=== PATIENT | female | born 1990 | race Caucasian/White ===

== ENCOUNTER 2021-11-15 05:57 | Inpatient (IN) | payer OTHER, SELFPAY ==
[2021-11-15] VITALS (43 sets, daily range): BP systolic 108–145; BP diastolic 53–89; PULSE 77–104; RESP 18; TEMP 36.6–37.1; O2SAT 96–100; BMI 42.5
--- NOTE | 2021-11-15 07:00 | LDN_ITS ---
CHIEF COMPLAINT Induction due to BMI greater than 40 pre-. HPI The patient is a 31-year-old G3, P1, at 39 weeks gestation by LMP consistent with 12 week ultrasound, who presents to Labor and Delivery for induction due to BMI. ?The patient reports she has been feeling well. ?No recent coughs, colds, or illness. ?She is not noticing any contractions. ?No loss of fluid. ?No bleeding. ?No headaches or vision changes. ?Baby has been moving well. ?She does not have any questions or concerns today. ? OBSTETRIC HISTORY She is a G3, P1-0-1-1. ?First baby was July 13, 2017, delivered at 38 and 4 weeks gestation, who weighed 7 pounds 10 ounces, was a boy named Patrice. ?Second was June 2019 was a 1st trimester SAB. ?Third is current , she has had good care. ? labs include blood type B positive, antibody negative, HIV, syphilis, hepatitis negative, chlamydia negative. ?Rubella immune. ?Hemoglobin A1c 5.9. ?One glucose tolerance test was positive, but she passed her 3 hour glucose tolerance test. ?GBS is known negative. ?This , she has had good care. ?She did have an anesthesiology and OB consult due to her BMI. ?She has a known macrosomia with ultrasound June 30, 2021, showing EF to be 95%. ?Growth at 34 weeks showed 98 percentile. ? Based on growth ultrasounds and percentage 98% at 34 weeks, basing on estimated weight curve, 95 percentile would be 4125 g at 39 weeks and 4232 g at 40 weeks. ?She did have a consult with OB regarding her BMI and macrosomia. ?She is well below the level for prophylactic in a nondiabetic. ?She has been getting weekly BPP due to BMI. PAST MEDICAL HISTORY 1. Migraines.? 2. Pneumonia in 1997.? 3. Chickenpox. ? PAST SURGICAL HISTORY Tonsils and adenoids. ALLERGIES Augmentin causes hives. ?Sulfa eyedrops cause swelling and redness of the eyes. MEDICATIONS 1. Colace 100 mg daily.? 2. Ferrous sulfate 325 every other day.? 3. vitamin daily.? SOCIAL HISTORY She is . ?She has 1 son named Patrice. FAMILY HISTORY Maternal aunt had cervical cancer. ?Paternal grandmother had breast cancer. ?Paternal grandfather had prostate cancer. ?Mom, sister and brother are healthy. ?Maternal great uncle had muscular dystrophy. ?Mom had negative testing. ?Father has prediabetes. PHYSICAL EXAM VITAL SIGNS: ?On admit, temp 98.6, pulse 98, blood pressure 127/74, O2 saturation 97%. ? GENERAL: ?Pleasant female in no acute distress. ?She is alert and appropriate. ? HEENT: ?Conjunctivae are clear. ?She is wearing a mask. ? HEART: ?Regular rate and rhythm. ? LUNGS: ?Clear to auscultation bilaterally. ABDOMEN: ?Gravid, nontender. ? : ?Cervix is 3 cm, 50%, -2, medium consistency and mid position, which gives her a Gomez score of 6 and a mall tip. ASSESSMENT A 31-year-old G3, P1, at 39 weeks gestation here for induction due to BMI. ? PLAN 1. Previously discussed induction techniques with the patient. ?With known prior delivery and cervix as above, we will start with Pitocin and an AROM if needed. ?Head is currently engaged. ?We will start with Pitocin protocol.? 2. Known GBS negative.? 3. Discussed all with patient and her . ?They did not have any questions.?
[2021-11-15 09:37] LABS: Hemoglobin* 12.9 gm/dL (12.0-16.0)
[2021-11-15] MEDS: LACTATED RINGERS 1000 ML 1,000 ML 125 ML IV ×4 (09:49→21:12)
[2021-11-15] MEDS: OXYTOCIN 30 unit/500 ML in NS 30 UNIT/500 ML BAG IVPB (09:51)
[2021-11-15 10:53] LABS: SARS PCR* Negative SARS-CoV-2 (Negative)
--- NOTE | 2021-11-15 17:16 | PM.OBPNL ---
Pain Control Time Seen by Provider: 17:15 Date Seen: 11/15/21 Comments: starting breath through contraction she says, just in last few Contractions Monitor mode: External (ctxs q2-4min) Contraction pattern: Irregular Contraction intensity: Moderate Pelvic Exam Dilation (cm): 4 Effacement (%): 70 Station: -3 Comments: ballotable Fetus (Single) Comments: FHT basline 140's moderate variability, +accels. Assessment and Plan Assessment: induction ongoing Plan: continue present management Comments: Discussed possible AROM but head still ballotable on exam so unable to AROM at this time. discussed reasons why with pt. continue pitocin increasing per protocol. pt and without ?'s
[2021-11-15] MEDS: CALCIUM CARBONATE 500 MG CHEW PO (21:11)
[2021-11-15] MEDS: LIDOCAINE 2% (PF) 5 ML VIAL EPIDURAL (21:40)
[2021-11-15] MEDS: ROPIVACAINE 0.2% 100 ml 100 ML 12 MG EPIDURAL (21:41)
--- NOTE | 2021-11-15 21:48 | P.ANBPRC_ITS ---
PFSH PFS Social History Smoking Status: Former smoker Meds Home Medications and Allergies Home Medications Medication Instructions Recorded Confirmed Type calcium carbonate 200 mg calcium 800 mg PO QID 11/15/21 11/15/21 History (500 mg) chewable tablet (Tums) docusate sodium 100 mg capsule 100 mg PO DAILY 11/15/21 11/15/21 History (Colace) ferrous sulfate 325 mg (65 mg 325 mg PO .Every other 11/15/21 11/15/21 History iron) tablet (Feosol) prenat.vits,jenn,[id number]-bfsfx 1 tab PO DAILY 11/15/21 11/15/21 History Allergies Allergy/AdvReac Type Severity Reaction Status Date / Time Sulfa (Sulfonamide Allergy Intermediate Eye swell Verified 11/15/21 09:55 Antibiotics) amoxicillin [From Augmentin] Allergy Mild Rash Verified 11/15/21 09:55 clavulanic acid Allergy Mild Rash Verified 11/15/21 09:55 [From Augmentin] Results Labs Labs: Laboratory Results - last 24 hr 11/15/21 11/15/21 11/15/21 07:30 09:22 09:22 Hgb 12.9 SARS-CoV-2 (PCR) Negative SARS-CoV-2 Blood Type B Positive Antibody Screen NEGATIVE Vital Signs Vital Signs: Last Vital Signs Temp 98.4 F 11/15/21 19:20 Pulse 101 H 11/15/21 21:47 Resp 18 11/15/21 14:51 BP 124/60 11/15/21 21:47 Pulse Ox 99 11/15/21 21:46 Weight: 123.094 kg Height: 170.18 cm Anesthesia Procedures Epidural Insertion Patient Location: OB Start Time: 21:00 Stop Time: 22:00 Start Date: 11/15/21 Stop Date: 11/15/21 Reason for Block: primary anesthetic Patient Position: sitting Performed By: Ko Mathur Preanesthetic Checklist: IV checked, risks and benefits discussed, surgical consent, monitors and equipment checked, pre-op evaluation, timeout performed and anesthesia consent Prep: chlorhexidine gluconate Monitoring: blood pressure monitoring, monitoring tech, continuous pulse oximetry and heart rate Approach: midline Vertebral Space: lumbar (1-5) Epidural Technique: DILLON saline Needle Type: Tuohy needle Injection Technique: continuous shot Needle gauge: 17 Needle Length (cm): 10 cm Needle Insertion Depth (cm): 7 Catheter Gauge: 19 Catheter Type: multi-orifice Catheter at skin depth (cm): 12 Test Dose Result: negative and lidocaine 1.5% with epinephrine 1 to 200,000 Events: other
--- NOTE | 2021-11-15 23:12 | P.OBPN_ITS ---
Pain Control Time Seen by Provider: 23:08 Date Seen: 11/15/21 Pain control: epidural Comments: pt received epidural and is now comfortable. Initially after epidural was on let side, then switched to right and started having recurrent late decels so switched back to left which seemed to show improvement. Then at 2300 she SROM'd with clear fluid and had decel at that time down to 90bpm. Recovered on own. Contractions Monitor mode: External (ctxs q2-4min) Contraction frequency: 2 (q2min) Contraction pattern: Regular Pelvic Exam Dilation (cm): 6 Effacement (%): 90 Station: -3 Comments: Head still not totally engaged with room noted, she then had contraction which brought head down during contraction Fetus (Single) Comments: baseline now 140's moderate variability, +accels, since SROM had 4 obvious decels but contractions not picking up well to confirm if late or early--possible mixture. Good variability between. Assessment and Plan Pitocin rate (mU/min): 14 Assessment: active labor Comments: at 39wks induced for BMI, now with SROM with clear fluid and transitioning into active labor. 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 Nursing placing urinary catheter first and adjusting monitor as prev ctxs with novi were picking up well.
[2021-11-16] VITALS (28 sets, daily range): BP systolic 105–137; BP diastolic 50–77; PULSE 82–117; RESP 16; TEMP 36.6–37.2; O2SAT 92–100
--- NOTE | 2021-11-16 00:08 | PM.OBPNL ---
Pain Control Time Seen by Provider: 23:50 Date Seen: 11/16/21 Pain control: epidural Comments: pt comfortable, just did side line release with RN's Contractions Monitor mode: External (ctxs q2-4min) Contraction frequency: 2 (q1-4min) Contraction pattern: Irregular Pelvic Exam Dilation (cm): 7-8 Effacement (%): 90 Station: -2 Comments: pt checked on left side, unable to tell head position, IUPC placed without difficulty Fetus (Single) Comments: 150's moderate variability, recurrent late decels Assessment and Plan Pitocin rate (mU/min): 14 Assessment: active labor Comments: recurrent late decels. Will give IVF bolus, decrease pitocin to 10, place IUPC. Discussed with pt and and they were in agreement with plan and did not have ?'s.
[2021-11-16] MEDS: LACTATED RINGERS 1000 ML 1,000 ML IV (00:35)
[2021-11-16] MEDS: ONDANSETRON 2 MG/ML inj 4 MG IV (01:10)
--- NOTE | 2021-11-16 02:10 | PM.OBPRCVD ---
Procedure Delivery date: 11/16/21 Procedure Done: Global Events: Labor Induction (due to BMI) Intrapartal Events: Distress (recurrent lates intermittently improved with various interventions each time) Induction method: per pitocin protocol Delivery monitor: external FHT and internal FHT (placed towards end of labor due to difficulty picking up heart tones) Route of delivery: Episiotomy description: None Laceration description: Perineal - 1st Degree (hemostatic not requiring repair) Estimated blood loss (mL): 200 Anesthesia type: Epidural Disposition: floor (routine ) Complications: Brief shoulder dystocia <15-20sec, navin performed and at that time infants hand was noted at neck and therefore posterior arm was delivery and infant delivered. Placed on patients abdomen and stimulated and had spontaneous cry. No further resuscitation needed. Apgars 8/9. weight pending. [place] Infant Gender: Male presentation: vertex Placental Delivery Description: Spontaneous Cord Description: 3 Vessels
[2021-11-16] MEDS: IBUPROFEN 600 MG TABLET PO ×2 (07:23→19:27)
[2021-11-16] MEDS: DOCUSATE SODIUM 100 MG CAPSULE PO (10:12)
[2021-11-17 02:30] VITALS: BP 108/73; PULSE 76; RESP 14; TEMP 36.6; O2SAT 97
[2021-11-17] MEDS: IBUPROFEN 600 MG TABLET PO (03:21)
[2021-11-17 07:20] LABS: Hemoglobin* 12.2 gm/dL (12.0-16.0)
--- NOTE | 2021-11-17 07:20 | PM.OBDSVD1 ---
DS: Providers Provider Time Seen by Provider: 07:20 Date Seen: 11/17/21 Date of admission: 11/15/21 05:57 Primary care physician: Jazz Wilson PA-C Admitting Clinician: Rhonda James DO Attending Physician on discharge: Rhonda James DO Date of Discharge: 11/17/21 DS: Diagnosis Discharge Diagnosis (1) (normal spontaneous vaginal delivery): Status: Acute (2) complicated by obesity: Status: Acute Exam Const: Vital Signs, click to edit/add: Vital Signs - 24 hr 11/16/21 08:05 11/16/21 14:10 11/16/21 16:19 Temperature 98.7 F 98.0 F 98.8 F Pulse Rate [Pulse Oximeter] 84 92 90 Respiratory Rate 16 16 16 Blood Pressure [Ri ght Arm] 108/72 112/75 105/69 Pulse Oximetry 97 98 98 11/16/21 19:27 11/16/21 20:19 11/16/21 20:21 Temperature 98.3 F 97.9 F 97.9 F Pulse Rate [Pulse Oximeter] 82 Respiratory Rate 16 Blood Pressure [Ri ght Arm] 107/72 Pulse Oximetry 97 11/17/21 02:30 Temperature 98 F Pulse Rate [Pulse Oximeter] 76 Respiratory Rate 14 Blood Pressure [Ri ght Arm] 108/73 Pulse Oximetry 97 Common normals: no apparent distress General appearance: cooperative and comfortable Orientation/consciousness: Yes awake : Uterus: firm (below umbilicus) Neuro: Sensorium/orientation: awake OB - DS: Summary Hospital Course Hospital Course: The patient is a 31 year old G 3 P 1 at 39 weeks gestation that was admitted to the Center on 11/15/21 for induction due to BMI. She had an uncomplicated vaginal delivery. She delivered a viable male infant. She is breast feeding. the patient has done well. Locia mild. No concerns. Ambulating, voidng and tolerating orals well. Peripartum Data Infant delivery method: Vaginal Laceration description: Perineal - 1st Degree Gender: Male Infant Discharge Plan: Home Infant A Infant Gender: Male Infant Discharge Plan: Home Status at Discharge Functional status at discharge: independent ambulation Time Spent with Patient Time attestation: Total time spent providing and/or coordinating discharge services: Discharge Plan Discharge Disposition: Home, Self-Care Date of Admission: 11/15/21 05:57 Attending Provider on Discharge: Rhonda James Primary Care Provider: Jazz Wilson Condition: Stable Anticipated Discharge Date/Time: 11/17/21 07:26 Discharge Medications: Continued calcium carbonate [Tums] 200 mg calcium (500 mg) tablet,chewable 800 mg PO QID 0RF docusate sodium [Colace] 100 mg capsule 100 mg PO DAILY 0RF prenat.vits,jenn,[id number] Tablet 1 tab PO DAILY 0RF Discontinued ferrous sulfate [Feosol] 325 mg (65 mg iron) tablet 325 mg PO .Every other 0RF Discharge Orders: Discharge Order (Routine); Ordered 11/17/21 Ordered By: Rhonda James Patient Education: OB Vaginal/Breast Feeding Activity Detail: pelvic rest Discharge Diet: Regular Follow Up Appointments: Jazz Wilson, PACarolC [Primary Care Provider] - Rhonda James DO [Staff Physician] - Forms: MyHealth Info Instructions Discharge Comment: 6wk visit
[2021-11-17 07:30] VITALS: BP 107/72; PULSE 75; RESP 16; TEMP 36.7; O2SAT 97
== END 2021-11-17 09:52 | disposition home or self-care (01) | DRG 807 ==
PROVIDERS: Admitting Provider Family Medicine; PCP Physician Assistant Medical; Visit Provider Family Medicine
DX: O99.214 Obesity complicating childbirth (principal); Z37.0 Single live birth; E66.9 Obesity, unspecified; O76 Abnormality in fetal heart rate and rhythm complicating labor and delivery; O70.0 First degree perineal laceration during delivery; Z3A.39 39 weeks gestation of pregnancy
CPT/HCPCS: 1967; 36415; 85018; 86850; 86900; 86901; 87635; A9270; J2405; J2795; J3010; J7120

== ENCOUNTER 2023-10-01 20:01 | Inpatient (IN) | payer OTHER, SELFPAY ==
[2023-10-01 20:39] VITALS: BMI 41.7
[2023-10-01 21:10] VITALS: PULSE 80; PULSE 81; TEMP 37.1; O2SAT 94; O2SAT 97
[2023-10-01 21:11] VITALS: BP 123/71; PULSE 79
[2023-10-01] MEDS: miSOPROStoL 25 MCG/0.25 TABLET VAGINAL (21:20)
[2023-10-01 21:47] LABS: Basophils Absolute Auto 0.02 K/uL (0.00-0.30); Basophils Percent Auto 0.2 % (0.0-3.0); Eosinophils Absolute Auto 0.14 K/uL (0.00-0.50); Eosinophils Percent Auto 1.4 % (0.0-7.0); Hemoglobin* 12.6 gm/dL (12.0-16.0); Immature Granulocytes Abs Auto 0.04 K/uL (0.00-0.30); Immature Granulocytes Pct Auto 0.4 %; Lymphocytes Absolute Auto 2.43 K/uL (0.90-2.90); Lymphocytes Percent Auto 23.6 % (20-44); Mean Corpuscular HGB Conc 33 gm/dL (32-36); Mean Corpuscular Hemoglobin 30 pg (26-34); Mean Corpuscular Volume 90 fL (80-100); Monocytes Percent Auto 9.7 % (0.0-11.0); Neutrophils Absolute Auto 6.68 K/uL (1.7-7.0); Neutrophils Percent Auto 64.7 % (42.0-72.0); Platelet Count* 217 K/uL (140-440); RDW Coefficient of Variation % 14.1 % (11.5-15.5); Red Blood Count 4.22 m/uL (4.00-5.20); White Blood Count* 10.31 K/uL (4.50-11.00)
[2023-10-01 21:56] LABS: Slide Review Reflex No
[2023-10-02] VITALS (43 sets, daily range): BP systolic 96–159; BP diastolic 60–93; PULSE 69–128; RESP 16; TEMP 36.6–37.1; O2SAT 89–100
[2023-10-02] MEDS: miSOPROStoL 25 MCG/0.25 TABLET VAGINAL (01:32)
[2023-10-02] MEDS: LACTATED RINGERS 1000 ML 1,000 ML IV (06:35)
--- NOTE | 2023-10-02 06:35 | PM.OBHPLI ---
OB - H&P: HPI Labor/Induction History of Present Illness Time Seen by Provider: 06:10 Date Seen: 10/02/23 Chief Complaint: The patient is a 33 year old 4 para 2 at 39 weeks gestation by LMP c/w 10wk US, who presented for induction due to BMI >40. Chief complaint: IOL- Medical : 4 Para: 2 Date of last menstrual period: 01/02/23 Estimated date of delivery: 10/09/23 Gestational age based on last menstrual period: 39 Indications for induction: other (BMI >40) Narrative: Ya Aguirre is a 33 year old 4 para 2 at 39 weeks gestation by LMP c/w 10wk US, who presented for induction due to BMI >40. Pt was seen in clinic 10/01/23 for routine visit prior to induction. Cervix 2/50/-3, US yesterday in clinic with BPP 12/05 and position vertex. has been complicated by BMI >40, GDM diagnosed at 29wks and diet controlled, and macrosomia (EFW 34wks >98%--would be 9# around 39wks and has prev delivered 9#15oz baby vaginally). Fetus was transverse at 35 6/7 weeks but has had weekly US since showing cephalic position including one on 10/01/23. Prior to induction pt has not been having contractions, no bleeding, no LOF. +Good FM. No headaches or vision changes. Glucoses over last week all within goal except one elevated after having ice cream. History of Present Dating criteria: based on LMP care: good care Ultrasounds: normal 1st trimester US, normal mid trimester US (normal level 2 with echo wnl) and other (34wk growth EFW > 98%) complications: gestational diabetes (A1) and other (BMI>40, had level 2US with echo, consult with anesthesiology, growth US's and BPP's) Labs Blood type: B (+) positive Rubella: immune RPR/VDLR: nonreactive GBS status: negative HBsAG: negative Meds Home Medications and Allergies Home Medications ?Medication ?Instructions ?Recorded ?Confirmed ?Type calcium carbonate (Tums) 800 mg PO QID 11/15/21 10/01/23 History docusate sodium 100 mg capsule 100 mg PO DAILY 11/15/21 10/01/23 History (Colace) prenat.vits,jenn,[id number]-[id number] 1 tab PO DAILY 11/15/21 10/01/23 History cholecalciferol (vitamin D3) 25 25 mcg PO QDAY 05/31/23 10/01/23 History mcg (1,000 unit) capsule ferrous sulfate 325 mg (65 mg 325 mg PO .every other day 10/01/23 10/01/23 History iron) tablet Allergies Allergy/AdvReac Type Severity Reaction Status Date / Time Sulfa (Sulfonamide Allergy Intermediate Eye swell Verified 05/31/23 10:50 Antibiotics) amoxicillin [From Augmentin] Allergy Mild Rash Verified 05/31/23 10:50 clavulanic acid Allergy Mild Rash Verified 05/31/23 10:50 [From Augmentin] OB - H&P: Exam Physical Exam: Vital signs: Temp Pulse BP Pulse Ox 98 F 83 126/68 94 10/02/23 01:35 10/02/23 01:35 10/02/23 01:35 10/01/23 21:10 Constitutional: Constitutional: no acute distress and cooperative Routine HEENT Exam: Head: Present normal inspection Eye: Present normal appearance ENT: Present mucous membranes moist Routine Respiratory Exam: Respiratory: Present CTA bilaterally Routine Cardiovascular Exam: Cardiovascular: RRR Routine Exam: Perineum Description: Normal Detailed Labor and Delivery Exam: Patient Gravid: Yes Dilation (cm): 5 Effacement (%): 70 Cervix position: mid Consistency: soft Contraction intensity: Moderate Fetus (Single): Station: -2 Amniotic Membrane Status: intact Heart Rate Baseline: 130 Monitor Accelerations: Present Monitor Decelerations: Late (occasional late decels and some variables) Insurance Healthcare Representative Variability: Moderate (6-25) Routine Psychiatric Exam: Present normal affect OB - Results Labs Labs: Short CBC 10/01/23 Range/Units 21:42 WBC 10.31 (4.50-11.00) K/uL Hgb 12.6 (12.0-16.0) gm/dL Hct 38.0 (33.0-51.0) % Plt Count 217 (140-440) K/uL OB - Problem Based A/P Additional Plan (1) GDM, class A1: Status: Acute (2) Term : Status: Acute (3) macrosomia: Status: Acute (4) complicated by obesity: Status: Acute Plan Induction previously discussed at length in clinic including risks vs benefits. Induction started last night due to BMI >40, GDM A1 -known GBS negative -has received 2 doses cytotec and now rating ctxs 10/07 and requesting epidural. cervix now 5cm. RN to notify anesthesiology of epidural. discussed pitocin and possible AROM depending on contractions and cervix. All ?'s answered. -pt has had tubal consent with Dr Hinson during as desires tubal ligation Delivery/Labor/Induction Plan Plan: induction (see above)
[2023-10-02] MEDS: LIDOCAINE 2% (PF) 5 ML VIAL EPIDURAL (07:47)
[2023-10-02] MEDS: ROPIVACAINE 0.2% 100 ml 100 ML 12 MG EPIDURAL (07:47)
[2023-10-02] MEDS: 5 % DEXTROSE/0.9% SOD CHLORIDE 1,000 ML 125 ML IV (07:52)
--- NOTE | 2023-10-02 07:52 | PM.ANBPRC ---
[facility] Medical History (Updated 10/02/23 @ 06:53 by Rhonda James, DO) complicated by obesity ?O99.210 - Obesity complicating , unspecified trimester (ICD-10) (normal spontaneous vaginal delivery) ?O80 - Encounter for full-term uncomplicated delivery (ICD-10) Surgical History (Updated 10/02/23 @ 06:47 by Rhonda James DO) Hx of tonsillectomy ?Z90.89 - Acquired absence of other organs (ICD-10) History of colectomy ?Z90.49 - Acquired absence of other specified parts of digestive tract (ICD-10) Family History (Updated 05/28/23 @ 10:45 by Grace Concepcion) Paternal Grandmother Breast cancer Social History What is your current living situation?: I presently have a place to live Problems where you live: no known problems In the past 12 months, utilities in danger of being shut off: no In past 12 months, lack of transportation kept you from medical appts, meetings, work, or getting things needed for daily living: no In the past 12 mos, have been you worried that your food would run out before you had money to buy more?: never true In the past 12 mos, the food you bought just didn't last and you didn't have money to buy more?: never true Smoking Status: Never smoker How often does anyone, including family, friends and others, physically hurt you: never How often does anyone, including family, friends and others, insult or talk down to you: never How often does anyone, including family, friends and others, threaten you with harm: never How often does anyone, including family, friends and others, scream or curse at you: never Meds Home Medications and Allergies Home Medications ?Medication ?Instructions ?Recorded ?Confirmed ?Type calcium carbonate (Tums) 800 mg PO QID 11/15/21 10/01/23 History docusate sodium 100 mg capsule 100 mg PO DAILY 11/15/21 10/01/23 History (Colace) prenat.vits,jenn,pbg-[id number]-enrli 1 tab PO DAILY 11/15/21 10/01/23 History cholecalciferol (vitamin D3) 25 25 mcg PO QDAY 05/31/23 10/01/23 History mcg (1,000 unit) capsule ferrous sulfate 325 mg (65 mg 325 mg PO .every other day 10/01/23 10/01/23 History iron) tablet Allergies Allergy/AdvReac Type Severity Reaction Status Date / Time Sulfa (Sulfonamide Allergy Intermediate Eye swell Verified 05/31/23 10:50 Antibiotics) amoxicillin [From Augmentin] Allergy Mild Rash Verified 05/31/23 10:50 clavulanic acid Allergy Mild Rash Verified 05/31/23 10:50 [From Augmentin] Results Labs Labs: Laboratory Results - last 24 hr 10/01/23 21:42 WBC 10.31 RBC 4.22 Hgb 12.6 Hct 38.0 MCV 90 MCH 30 MCHC 33 RDW Coeff of Kimmie 14.1 Plt Count 217 Neut % (Auto) 64.7 Lymph % (Auto) 23.6 Leake % (Auto) 9.7 Eos % (Auto) 1.4 Baso % (Auto) 0.2 Neut # (Auto) 6.68 Lymph # (Auto) 2.43 Leake # (Auto) 1.00 H Eos # (Auto) 0.14 Baso # (Auto) 0.02 Abs Immat Gran (auto) 0.04 Imm/Tot Granulo (auto) 0.4 Blood Type B Positive Antibody Screen NEGATIVE Vital Signs Vital Signs: Last Vital Signs Temp 98 F 10/02/23 01:35 Pulse 86 10/02/23 07:50 BP 133/73 10/02/23 07:50 Pulse Ox 97 10/02/23 07:49 Weight: 120.746 kg Height: 170.18 cm Anesthesia Procedures Epidural Insertion Patient Location: OB Start Time: 07:30 Stop Time: 08:00 Start Date: 10/02/23 Stop Date: 10/02/23 Reason for Block: primary anesthetic Patient Position: sitting Performed By: Arcadio Calvo Preanesthetic Checklist: IV checked, risks and benefits discussed, surgical consent, monitors and equipment checked, pre-op evaluation, timeout performed and anesthesia consent Prep: chlorhexidine gluconate Monitoring: blood pressure monitoring, traffic controller cable, continuous pulse oximetry and heart rate Approach: midline Vertebral Space: lumbar (1-5) Needle Type: Tuohy needle Injection Technique: continuous catheter (catheter) Needle gauge: 17 Needle Length (cm): 10 cm Needle Insertion Depth (cm): 5 Catheter Gauge: 19 Catheter Type: multi-orifice Catheter at skin depth (cm): 10 Test Dose Result: negative and lidocaine 1.5% with epinephrine 1 to 200,000
[2023-10-02] MEDS: OXYTOCIN 30 unit/500 ML in NS 30 UNIT/500 ML BAG 300 UNIT IVPB (08:20)
--- NOTE | 2023-10-02 08:48 | W.PM.VAGDEL1 ---
Procedure Delivery date: 10/02/23 Procedure Done: Global Procedure Details: The patient is a 33 year-old admitted on 10/01/23 at 38 Weeks, 6 Days gestation for cervical ripening for induction due to BMI>40 and GDM, A1.? Cervical exam on admission was 2 cm/50 % effaced/-3 station with membranes intact in vertex presentation.? Contractions were not felt on admit.? heart rate demonstrated baseline 130 bpm with moderate variability, + accelerations, - decelerations; a category 1 tracing.?Cervical ripening started evening 10/01/23 with cytotec PV and she received 2 doses. She then transitioned into active labor around 0615am on 10/02/23 and requested epidural at that time. SROM occurred at 0736 with clear fluid. ? Labor Analgesia:? Epidural ? Pitocin:? No ? Labor onset:? 0615 ? Complete:? 0804 ? Pushing:? 0812 ? heart tones during second stage were 120's bpm, moderate variability ? At 0816 was delivered. there was a 30sec shoulder dystocia. head delivered with nuchal cord which was reduced. There was 30sec shoulder dystocia which resolved with [facility] and rotating posterior shoulder. A viable female delivered in vertex presentation over intact perineum via spontaneous vaginal delivery.? was placed on maternal abdomen.? Cord was clamped and cut after a 60 second delay.? Nose and mouth were bulb suctioned.? Infant weight pending.? 8 at 1 minute and 9 at 5 minutes.? Shoulder dystocia: yes.? Nuchal cord: yes x1. Active management of placenta performed. Pitocin given at delivery. There was a gush of blood shortly after delivery and so cytotec 800 SC given immediately then at 0818. No further significant bleeding was present. ? Placenta delivered spontaneously and complete at 0816 with a 3 vessel cord. ? Mother and infant were stable after delivery. ? Lacerations:? none ? Blood loss: 250 mL. Blood loss measurement type: QBL ? Sponge and needles counts are correct. Events: GDMA1, Labor Induction and Other (BMI >40) Intrapartal Events: Precipitous Labor <3 Hrs Delivery monitor: external FHT Route of delivery: Laceration description: None Estimated blood loss (mL): 250 Anesthesia type: Epidural [place] Gender: Female presentation: vertex Placental Delivery Description: Spontaneous Cord Description: 3 Vessels
--- NOTE | 2023-10-02 09:51 | PM.GYNCN1 ---
[employer] - CN: HPI Data of Consult Time Seen by Provider: 09:51 Date Seen: 10/02/23 Patient: Aravind Patient Consult date: 10/02/23 Requesting Physician: Rhonda James DO Primary Care Provider: Rhonda James DO Consult Narrative Narrative: Ms. Aguirre is a 33yo seen on PPD0 from for surgical sterilization planning. She is s/p consult in the clinic with Dr. Hinson on 06/04/23 where she had comprehensive counseling on risks/benefits. She signed federal sterilization consent form on 06/04/23. She had a precipitous this morning, complicated by 30s shoulder dystocia. No hemorrhage or HTN disorder. was complicated by obesity and GDMA1. Ya is feeling well since delivery. She affirms strong desire to proceed with surgical sterilization. Last had a bite of toast of 0600, plan to proceed at 1400 to achieve adequate NPO status. MEDICAL HISTORY: 1. Migraine with aura SURGICAL HISTORY: 1. Tonsil and adenoidectomy 2. [place] teeth extraction cc:: CC: Rhonda James DO PFSH PFSH Medical History (Updated 10/02/23 @ 06:53 by Rhonda James DO) complicated by obesity ?O99.210 - Obesity complicating , unspecified trimester (ICD-10) (normal spontaneous vaginal delivery) ?O80 - Encounter for full-term uncomplicated delivery (ICD-10) Surgical History (Updated 10/02/23 @ 06:47 by Rhonda James DO) Hx of tonsillectomy ?Z90.89 - Acquired absence of other organs (ICD-10) History of colectomy ?Z90.49 - Acquired absence of other specified parts of digestive tract (ICD-10) Family History (Updated 05/28/23 @ 10:45 by Grace Concepcion) Paternal Grandmother Breast cancer Social History What is your current living situation?: I presently have a place to live Problems where you live: no known problems In the past 12 months, utilities in danger of being shut off: no In past 12 months, lack of transportation kept you from medical appts, meetings, work, or getting things needed for daily living: no In the past 12 mos, have been you worried that your food would run out before you had money to buy more?: never true In the past 12 mos, the food you bought just didn't last and you didn't have money to buy more?: never true Smoking Status: Never smoker How often does anyone, including family, friends and others, physically hurt you: never How often does anyone, including family, friends and others, insult or talk down to you: never How often does anyone, including family, friends and others, threaten you with harm: never How often does anyone, including family, friends and others, scream or curse at you: never Meds Home Medications and Allergies Home Medications ?Medication ?Instructions ?Recorded ?Confirmed ?Type calcium carbonate (Tums) 800 mg PO QID 11/15/21 10/01/23 History docusate sodium 100 mg capsule 100 mg PO DAILY 11/15/21 10/01/23 History (Colace) prenat.vits,jenn,bjz-rfal-wqrbx 1 tab PO DAILY 11/15/21 10/01/23 History cholecalciferol (vitamin D3) 25 25 mcg PO QDAY 05/31/23 10/01/23 History mcg (1,000 unit) capsule ferrous sulfate 325 mg (65 mg 325 mg PO .every other day 10/01/23 10/01/23 History iron) tablet Allergies Allergy/AdvReac Type Severity Reaction Status Date / Time Sulfa (Sulfonamide Allergy Intermediate Eye swell Verified 05/31/23 10:50 Antibiotics) amoxicillin [From Augmentin] Allergy Mild Rash Verified 05/31/23 10:50 clavulanic acid Allergy Mild Rash Verified 05/31/23 10:50 [From Augmentin] [employer] - Exam Physical Exam: Vital signs: Temp Pulse BP Pulse Ox 98 F 79 122/67 100 10/02/23 01:35 10/02/23 09:36 10/02/23 09:36 10/02/23 08:14 Narrative: General: Alert and oriented, in no acute distress Abdomen: Soft, non-tender and non-distended. Fundus palpates at 1 below umbilicus. Abdominal wall depth increased but appropriate for immediate sterilization procedure. [employer] - Results Labs Labs: Short CBC 10/01/23 Range/Units 21:42 WBC 10.31 (4.50-11.00) K/uL Hgb 12.6 (12.0-16.0) gm/dL Hct 38.0 (33.0-51.0) % Plt Count 217 (140-440) K/uL Assessment and Plan Assessment and plan (1) complicated by obesity: Status: Acute (2) Term : Status: Acute (3) GDM, class A1: Status: Acute (4) Unwanted fertility: Status: Acute Plan Ya is seen on PPD0 from [facility] for surgical sterilization planning. She is an established patient of Dr. James ([facility]) s/p sterilization consult with Dr. Hinson on 06/04/23. Her delivery was precipitous in nature with 30s shoulder dystocia, otherwise uncomplicated. She does not have any acute conditions that preclude ability to form sterilization during this hospitalization, such as PPH or uncontrolled HTN. Ya affirms strong desire to proceed with surgical sterilization. I reviewed risks of regret, bleeding, infection, damage to surrounding structures and complications of surgery/anesthesia itself including VTE, heart attack, stroke. Explained this would be via a mini-laparotomy incision at the umbilicus, where her incision may end up being larger than some due to elevated BMI. Discussed post-operative expectations and restrictions. Recommend ibuprofen/tylenol for pain control, and oxycodone 5mg PRN for breakthrough pain. Recommend no lifting more than 15lbs for 6 weeks post-operatively. Recommend 6 weeks pelvic rest per standard Ob recommendations. Discussed call/return to care with worsening pain, nausea/vomiting, fevers/chills, incision redness/drainage or signs/symptoms of VTE. Plan to proceed with surgery at 1400 given NPO status. Plan perioperative ancef. She has low acuity allergy to amoxicillin/augmentin with rash. She signed federal sterilization consent on 06/03/23, s/p surgical consent today. Procedures Vaginal Delivery presentation: vertex
[2023-10-02] MEDS: LACTATED RINGERS 1000 ML 1,000 ML 100 ML IV (10:11)
--- NOTE | 2023-10-02 13:52 | P.GYNPRC_ITS ---
Procedure Note Date of procedure: 10/02/23 Will [facility] bill your pro fee for this procedure?: Yes Pre-op diagnosis: Undesired fertility Multiparity Procedure: bilateral salpingectomy Anesthesia: GETA Complications: None Surgeon: Keegan Diane MD Estimated blood loss (mL): 5 IV fluids (mL): 650 Pathology: specimen obtained, sent to pathology Condition: stable Disposition: floor Findings: Enlarged uterus secondary to state Unremarkable bilateral fallopian tubes and ovaries Procedure Description: Patient was taken to the operating room with IV running. Epdiural anesthesia was established and dosed per C[employer]IED TEACHER ASSISTANT. She received ancef in preoperative prophylaxis. She was prepped and draped in the usual sterile fashion in the dorsal supine position. The infraumbilical area was infiltrated with a small amount of 0.25% Marcaine with epinephrine. An infraumbilical vertical incision was made with a scalpel, 3.5cm in size. This incision was carried down to the underlying layer of fascia with hemostat. The fascia was grasped with Jovany clamps and entered sharply with scalpel. The peritoneum was gently grasped with jatin clamp, entered sharply with Metzenbaum scissors. The smallest Jerod retractor was inserted and tightened down. Uterus could be palpated just inferior to incision, where it could be genly displaced to isolate the right cornua. The right tube was identified and elevated then carried out to its fimbriated end with Babcocks. Beginning with the fimbriated edge, the mesosalpinx was cauterized and transected with the LigaSure exact device. This dissection was carried laterally to medially. The fallopian tube was divided at the cornua and sent to pathology. Hemostasis was confirmed. Uterus was then displaced to the right, where the left cornua could be isolated. The left tube was identified, elevated and carried out to its fimbriated end with Babcocks. Beginning with the fimbriated edge, the mesosalpinx was cauterized and transected with the LigaSure exact device, lateral to medial. The fallopian tube was divided near the cornua and sent to pathology. Hemostasis was confirmed. Patient was returned to neutral position. The retractor was removed. Hemostasis was again confirmed bilaterally. The fascial corners were grasped with Kochers a nd reapproximated with 0-Vicryl in a running fashion. The subcutaneous tissue was irrigated with warm saline. Subcutaneous tissue was closed with 3-0 vicryl. Skin was closed with a subcuticular stitch of 3-0 Monocryl. Surgical glue was applied over the incision. Surgical debrief completed. Specimens are bilateral fallopian tubes, sent for pathology. EBL 5mL, no UOP, IVF 650mL. No complications or concerns. Patient tolerated procedure well and was taken to recovery area in stable condition.
[2023-10-02] MEDS: CEFAZOLIN 2 GM INJ IVP (14:15)
--- NOTE | 2023-10-02 14:19 | PC.NURSE ---
Patient off unit at 1405 for OR procedure.
[2023-10-02] MEDS: BUPIVACAINE 0.25 %/EPI 1:200K 30 ml INJECTION (14:32)
--- NOTE | 2023-10-02 14:34 | W.ANESCHARGE ---
Anesthesia Charges Start Date/Time Anesthesia Start Date: 10/02/23 Anesthesia Start Time: 14:08 Stop Date/Time Anesthesia Stop Date: 10/02/23 Anesthesia Stop Time: 15:08
--- NOTE | 2023-10-02 15:09 | W.ANESCHARGE ---
Anesthesia Charges Start Date/Time Anesthesia Start Date: 10/02/23 Anesthesia Start Time: 14:08 Stop Date/Time Anesthesia Stop Date: 10/02/23 Anesthesia Stop Time: 15:08
[2023-10-02] MEDS: IBUPROFEN 600 MG TABLET PO ×2 (16:02→22:35)
[2023-10-02] MEDS: ACETAMINOPHEN 500 MG TABLET 1000 MG PO (20:06)
[2023-10-03 00:28] VITALS: BP 116/77; PULSE 69; RESP 16; TEMP 37; O2SAT 96
[2023-10-03 05:14] VITALS: BP 120/78; PULSE 70; RESP 16; TEMP 37; O2SAT 96
[2023-10-03] MEDS: IBUPROFEN 600 MG TABLET PO (05:17)
[2023-10-03 06:34] LABS: Hemoglobin* 12.1 gm/dL (12.0-16.0)
--- NOTE | 2023-10-03 08:19 | P.DS_ITS ---
DS: Providers Provider Date Seen: 10/03/23 Date of admission: 10/01/23 20:01 Primary care physician: Rhonda James DO Admitting Clinician: Rhonda James DO Attending Physician on discharge: Leyla Carvajal MD Date of Discharge: 10/03/23 DS: Diagnosis Discharge Diagnosis (1) Vaginal delivery: Status: Acute (2) GDM, class A1: Status: Acute (3) complicated by obesity: Status: Acute Exam Const: Vital Signs, click to edit/add: Vital Signs - 24 hr 10/02/23 08:21 10/02/23 08:36 10/02/23 08:51 Temperature Pulse Rate 100 99 83 Pulse Rate [Pulse Oximeter] Respiratory Rate Blood Pressure 128/93 H 117/69 126/65 Blood Pressure [Ri ght Arm] Pulse Oximetry 10/02/23 09:06 10/02/23 09:21 10/02/23 09:36 Temperature Pulse Rate 78 75 79 Pulse Rate [Pulse Oximeter] Respiratory Rate Blood Pressure 114/62 120/63 122/67 Blood Pressure [Ri ght Arm] Pulse Oximetry 10/02/23 09:51 10/02/23 10:06 10/02/23 10:21 Temperature Pulse Rate 81 82 72 Pulse Rate [Pulse Oximeter] Respiratory Rate Blood Pressure 113/64 114/67 115/68 Blood Pressure [Ri ght Arm] Pulse Oximetry 10/02/23 10:36 10/02/23 10:36 10/02/23 10:51 Temperature Pulse Rate 80 Pulse Rate [Pulse Oximeter] Respiratory Rate Blood Pressure 118/75 120/71 Blood Pressure [Ri ght Arm] Pulse Oximetry 10/02/23 10:51 10/02/23 15:05 10/02/23 15:20 Temperature 98.8 F Pulse Rate 78 Pulse Rate [Pulse Oximeter] 83 80 Respiratory Rate 16 16 Blood Pressure Blood Pressure [Ri ght Arm] 96/60 99/64 Pulse Oximetry 99 97 10/02/23 15:35 10/02/23 15:50 10/02/23 16:05 Temperature Pulse Rate Pulse Rate [Pulse Oximeter] 76 69 75 Respiratory Rate 16 16 16 Blood Pressure Blood Pressure [Ri ght Arm] 101/68 107/69 106/70 Pulse Oximetry 97 98 98 10/02/23 16:35 10/02/23 17:05 06/04/24 17:35 Temperature Pulse Rate Pulse Rate [Pulse Oximeter] 80 80 78 Respiratory Rate 16 16 16 Blood Pressure Blood Pressure [Ri ght Arm] 117/82 111/74 127/81 Pulse Oximetry 98 96 96 10/02/23 20:00 10/02/23 20:20 10/02/23 20:30 Temperature 97.8 F Pulse Rate Pulse Rate [Pulse Oximeter] Respiratory Rate Blood Pressure Blood Pressure [Ri ght Arm] 117/73 115/75 Pulse Oximetry 10/02/23 21:30 10/02/23 23:02 10/03/23 00:28 Temperature 98.6 F Pulse Rate Pulse Rate [Pulse Oximeter] 69 Respiratory Rate 16 Blood Pressure Blood Pressure [Ri ght Arm] 99/62 106/69 116/77 Pulse Oximetry 96 10/03/23 05:14 Temperature 98.6 F Pulse Rate Pulse Rate [Pulse Oximeter] 70 Respiratory Rate 16 Blood Pressure Blood Pressure [Ri ght Arm] 120/78 Pulse Oximetry 96 Common normals: no apparent distress and oriented x3 Eye: Common normals: PERRL and EOMs intact bilaterally Pupil: PERRL GI: Other: tenderness at umbilicus. uterus firm at level of umbilicus Neuro: Common normals: oriented x3 OB - DS: Summary Hospital Course Hospital Course: The patient is a 33 year old G 4 P 3013 at 39 weeks gestation that was admitted to the Center on 10/01/23 for IOL for gestational diabetes. She had an uncomplicated vaginal delivery. She delivered a viable female . She is breast feeding. the patient has done well. Peripartum Data delivery method: Vaginal Procedures: Procedures Operation Date: 10/02/23 14:00 Actual Procedure Side Surgeon p Post Bilateral Salpingectomy Bilateral Chantal Diane MD Procedures: tubal ligation/salpingectomy complications: none Gender: Female Infant Discharge Plan: Home Status at Discharge Functional status at discharge: independent ambulation Overall status at discharge: patient is progressing back to baseline Time Spent with Patient Time attestation: Total time spent providing and/or coordinating discharge services: Time spent: Less than 30 minutes Discharge Plan Discharge Disposition: Home, Self-Care Date of Admission: 10/01/23 20:01 Attending Provider on Discharge: Leyla Carvajal Primary Care Provider: Rhonda James Condition: Improved Anticipated Discharge Date/Time: 10/03/23 08:22 Discharge Medications: Continued cholecalciferol (vitamin D3) 25 mcg (1,000 unit) capsule 25 mcg PO QDAY calcium carbonate [Tums] 200 mg calcium (500 mg) tablet,chewable 800 mg PO QID docusate sodium [Colace] 100 mg capsule 100 mg PO DAILY prenat.vits,jenn,hak-soui-sajlb Tablet 1 tab PO DAILY ferrous sulfate 325 mg (65 mg iron) tablet 325 mg PO .every other day Rx Instructions: 325 mg orally; Discharge Orders: Discharge Order (Routine); Ordered 10/03/23 Ordered By: Leyla Carvajal Patient Education: OB Vaginal/Breast Feeding Activity Level: No Restrictions Activity Detail: nothing per vaginal x6 weeks Discharge Diet: Regular Follow Up Appointments: Rhonda James DO [Primary Care Provider] - (6 week post check) Forms: [facility] Info Instructions
[2023-10-03 09:00] VITALS: BP 121/79; PULSE 71; RESP 16; TEMP 36.8
[2023-10-03] MEDS: ACETAMINOPHEN 500 MG TABLET 1000 MG PO (11:14)
[2023-10-04 00:11] LABS: Rapid Plasma Reagin (RPR) Non Reactive (Non Reactive)
== END 2023-10-03 13:05 | disposition home or self-care (01) | DRG 798 ==
PROVIDERS: Obstetrics & Gynecology; Admitting Provider Family Medicine; PCP Family Medicine; Visit Provider Family Medicine
PROC: 0UT70ZZ Resection of Bilateral Fallopian Tubes, Open Approach (ICD-10-PCS; CPT 58605; principal; 2023-10-02 14:00)
DX: O24.420 Gestational diabetes mellitus in childbirth, diet controlled (principal); Z37.0 Single live birth; O66.0 Obstructed labor due to shoulder dystocia; O62.3 Precipitate labor; O36.63X0 Maternal care for excessive fetal growth, third trimester, not applicable or unspecified; O99.214 Obesity complicating childbirth; E66.9 Obesity, unspecified; Z3A.39 39 weeks gestation of pregnancy; Z30.2 Encounter for sterilization
CPT/HCPCS: 00851; 01967; 36415; 59200; 82962; 85018; 85025; 86592; 86850; 86900; 86901; 88302; A9270; J0690; J1100; J2250; J2371; J2405; J2704; J2795; J3010; J7042; J7120